=== PATIENT | female | born 1945 | race Caucasian/White ===

== ENCOUNTER → 2016-10-20 | Outpatient (CLI) | payer OTHER, MEDICARE ==
[~2016-10-20] MED LIST: ASPI81TA28 PO; CHOL20009 PO; ESCI10TA17 PO; HMLI SC; HMLI7525 SC; LISI-787 PO; LISI10TA PO; METF-841 PO; OFLO0.3S4 OPL; OXGN; PRED10TA PO; PRED1SUS3 OPL
[2016-10-20 15:56] LABS: ALT/SGPT 20 U/L (12-78); AST/SGOT 6 U/L (15-37); BLOOD UREA NITROGEN 16 mg/dl (7-18); BUN/CREATININE RATIO 16.7 (10-20); CALCIUM 8.4 mg/dl (8.5-10.1); CARBON DIOXIDE 26 mmol/L (21-32); CHLORIDE 103 mmol/L (98-107); CREATININE 0.97 mg/dl (0.60-1.20); GLUCOSE 220 mg/dl (70-99); POTASSIUM 3.5 mmol/L (3.5-5.1); SODIUM 139 mmol/L (136-145)
[2016-10-20 16:07] LABS: ALB/GLOB RATIO 0.9 (0.9-2); ALKALINE PHOSPHATASE 98 U/L (45-117); CHOLESTEROL 210 mg/dl (0-200); CHOLESTEROL/HDL RATIO 3.6; HDL CHOLESTEROL 58 mg/dl; LDL CHOLESTEROL CALCULATED 99 mg/dl; THYROID STIMULATING HORMONE 0.536 uIu/ml (0.300-4.500); TRIGLYCERIDES 266 mg/dl (0-150); VERY LOW DENSITY LIPOPROT CALC 53 mg/dl
[2016-10-21 06:12] LABS: ESTIMATED AVERAGE GLUCOSE 157 mg/dl; HA1C FLAG Normal (Normal)
== END | disposition home or self-care (01) ==
LOC: C.LAB1850 14:49
PROVIDERS: ATTEND Nurse Practitioner Adult Health
DX: E11.9 Type 2 diabetes mellitus without complications (principal); E78.5 Hyperlipidemia, unspecified; I10 Essential (primary) hypertension; Z79.52 Long term (current) use of systemic steroids

== ENCOUNTER → 2016-10-23 | Outpatient (CLI) | payer OTHER, MEDICARE ==
[2016-10-23 11:14] LABS: RATIO 3.5 mcg/mg (0-30.0)
== END | disposition home or self-care (01) ==
LOC: C.LABSPEC 09:33
PROVIDERS: ATTEND Family Medicine
DX: E11.9 Type 2 diabetes mellitus without complications (principal); E78.5 Hyperlipidemia, unspecified; I10 Essential (primary) hypertension

== ENCOUNTER → 2017-01-05 | Day surgery (SDC) | payer OTHER, MEDICARE ==
[2016-12-29 15:46] VITALS: BMI 37.0
[~2017-01-05] VITALS: Ht 160 cm; Wt 95.5 kg
[~2017-01-05] MED LIST changes: -HMLI SC; +LIDOCAINE HCL 2% 2 ML VIAL (20MG/ML) ONE; -LISI10TA PO; -OFLO0.3S4 OPL; -PRED1SUS3 OPL; +PROPOFOL IV EMULSION 10 MG/ML 20 ML VIAL IV ONE; +SODIUM CHLORIDE 0.9% 500ML 500 ML IV ONE
[2017-01-05 08:30] VITALS: Ht 160 cm; Wt 95.5 kg
--- NOTE | 2017-01-05 08:49 | Endo History and Physical ---
History & Physical Date of Service: Jan 05, 2017. Chief Complaint: HX OF POLYPS Referring Physician: DR RAHEL GUZMÁN History of Present Illness History of colon polyps, now on continuous oxygen. Past Surgical History Hx Cardiac Surgery: No Hx Internal Defibrillator: No Hx Pacemaker: No Hx Abdominal Surgery: Yes ([facility] BSO) Hx of Implantable Prosthesis: No Hx Post-Op Nausea and Vomiting: No Hx Cancer Surgery: No Hx Thoracic Surgery: No Hx Orthopedic: No Hx Urinary Tract Surgery: No Family History None Social History Smoking Status: Former Smoker Hx Substance Use: No Hx Alcohol Use: No Allergies Coded Allergies: Nitrofurantoin (Verified Allergy, Unknown, nausea, 12/29/16) Rosuvastatin (Verified Allergy, Unknown, "BREATHING PROBLEMS", 12/29/16) Sulfa Antibiotics (Verified Allergy, Unknown, RASH, 12/29/16) Atorvastatin (Verified Adverse Reaction, Unknown, muscle weakness, 12/29/16 ) Current Medications Reported Home Medications Medications Dose Route/Sig Max Daily Dose Days Date Category Zestoretic 20MG/12.5MG (HCTZ/Lisinopril) Tab 1 Tab PO QAM 12/29/16 Reported Humalog Mix 75/25 (Insulin Human Lispro) 100 Units/ Inj 48 Units SC QPM 12/29/16 Reported Prednisone 10 Mg Tab 1.5 Tabs PO QAM 01/23/16 Reported Oxygen Gas 3-4 Liters NA CONTINOUS 01/23/16 Reported Vitamin D (Cholecalciferol) 2,000 Unit Tab 1 Tab PO QAM 01/23/16 Reported Aspirin Ec (Aspirin) 81 Mg Tab 81 Mg PO QAM 01/23/16 Reported Metformin HCl ER (Metformin HCl) 1,000 Mg Tab 1 Tab PO QAM 01/23/16 Reported Lexapro (Escitalopram Oxalate) 10 Mg Tab 10 Mg PO QAM 01/23/16 Reported Vital Signs Weight (Kilograms): 95.45 Height (Feet): 5 Height (Inches): 3 Date Time Temp Pulse Resp B/P (MAP) Pulse Ox O2 Delivery O2 Flow Rate FiO2 01/05/17 08:32 36.6 90 20 112/61 (78) 95 Nasal Cannula 3 Physical Exam General Appearance: WD/WN, no apparent distress Respiratory/Chest: Auscultation: breath sounds normal, no wheezing Cardiovascular: Heart Auscultation: RRR, no murmurs Abdomen: Inspection & Palpation: soft, no tenderness, guarding & rebound Assessment and Plan Cleared for colonoscopy.
--- NOTE | 2017-01-05 10:07 | GI REPORT ---
Procedure Date: 01/05/2017 9:17 AM Procedure: Colonoscopy Indications: High risk colon cancer surveillance: Personal history of colonic polyps, Last colonoscopy: 2009 Medicines: Propofol per Anesthesia Complications: No immediate complications. Estimated blood loss: None. Estimated Blood Loss: Estimated blood loss: none. Procedure: Pre-Anesthesia Assessment: - Prior to the procedure, a History and Physical was performed, and patient medications, allergies and sensitivities were reviewed. The patient's tolerance of previous anesthesia was reviewed. - ASA Grade Assessment: III - A patient with severe systemic disease. After I obtained informed consent, the scope was passed under direct vision. Throughout the procedure, the patient's blood pressure, pulse, and oxygen saturations were monitored continuously. The On-site loaner was introduced through the anus and advanced to the terminal ileum, with identification of the appendiceal orifice and IC valve. The colonoscopy was performed with ease. The patient tolerated the procedure well. The quality of the bowel preparation was excellent. The bowel preparation used was split dose MIralax. Findings: The colon (entire examined portion) appeared normal. Impression: - The entire examined colon is normal to the terminal ileum with retroflexed views of the colon and terminal ileum. - No specimens collected. Recommendation: - Repeat colonoscopy in 5 years for surveillance. Pravin Major M.D. Pravin Major MD 01/05/2017 10:07:00 AM This report has been signed electronically. Note Initiated On: 01/05/2017 9:17 AM I attest to the content of the Intraoperative Record and orders documented therein, exceptions below
--- NOTE | 2017-01-05 10:21 | Discharge Instructions ---
Endoscopy Patient Instructions Date / Procedure(s) Performed Jan 05, 2017. Colonoscopy Allergy Information Coded Allergies: Nitrofurantoin (Verified Allergy, Unknown, nausea, 12/29/16) Rosuvastatin (Verified Allergy, Unknown, "BREATHING PROBLEMS", 12/29/16) Sulfa Antibiotics (Verified Allergy, Unknown, RASH, 12/29/16) Atorvastatin (Verified Adverse Reaction, Unknown, muscle weakness, 12/29/16 ) Discharge Date / Findings Jan 05, 2017. Normal colonoscopy. Medication Instructions Stopped Medication(s): ASPIRIN LAST DOSE 01/02/17 Restart Stopped Medication(s): Restart all medications Provider Instructions Activity Restrictions - No exercising or heavy lifting for 24 hours. - Do not drink alcohol the day of the procedure. - Do not drive a car or operate machinery until the day after the procedure. - Do not make any important decisions or sign important papers in 24 hours after the procedure. Following Day: - Return to full activity which may include returning to work/school. Diet Start your diet with liquids and light foods (jello, soup, juice, toast). Then eat your usual diet if not nauseated. Treatment For Common After Affects For mild abdominal pain, bloating, or excessive gas: - Rest - Eat lightly - Lie on right side Follow-Up Information Follow-up with DR RAHEL GUZMÁN as scheduled Anesthesia Information What You Should Know You have had a procedure that required some medicine to reduce anxiety and discomfort. This treatment is called moderate sedation. After receiving the treatment, you may be sleepy, but you will be able to breathe on your own. The effects of the treatment may last for several hours. Follow these instructions along with Activity/Diet recommendations noted above: * Do NOT do anything where dizziness or clumsiness would be dangerous. * Rest quietly at home today, then you can be up and about tomorrow. * Have a responsible person stay with you the rest of today. * You may have had an I.V. today. If so, you may take the dressing off later today. Recommendations Call your doctor if: * Trouble breathing * Continuous vomiting for more than 24 hours * Temperature above 101 degrees * Severe abdominal pain or bloating * Pain not relieved by pain medicine ordered * There is increased drainage or redness from any incision * A large amount of rectal bleeding greater than 2-3 tablespoons. (If you had a polyp/s removed or have hemorrhoids, a small amount of blood - from the rectum is to be expected.) * You have any unanswered questions or concerns. IN THE EVENT OF A SERIOUS EMERGENCY, GO TO THE NEAREST EMERGENCY ROOM Your discharge instructions were prepared by provider Pravin Major. Patient Instructions Signature Page Deysi King Patient (or Guardian) Signature/Date: I have read and understand the instructions given to me by my caregivers. Caregiver/RN/Doctor Signature/Date: The above-named patient and/or guardian has received patient instructions on this date. + Original Patient Signature Page (only) stays with chart. Please make copy for patient.
--- NOTE | 2017-01-05 10:38 | Anesthesiology Progress Note ---
Anesthesia Post Op Note Date & Time Jan 05, 2017 at 10:38 Vital Signs Pain Intensity: 0 Vital Signs Past 12 Hours Date Time Temp Pulse Resp B/P (MAP) Pulse Ox O2 Delivery O2 Flow Rate FiO2 01/05/17 10:34 84 20 125/54 (77) 98 Nasal Cannula 3 01/05/17 10:16 88 20 114/46 (68) 98 Nasal Cannula 3 01/05/17 10:01 85 20 99/46 (63) 100 Nasal Cannula 3 01/05/17 08:32 36.6 90 20 112/61 (78) 95 Nasal Cannula 3 Notes Mental Status: alert / awake / arousable, participated in evaluation Pt Amnestic to Procedure: Yes Nausea / Vomiting: adequately controlled Pain: adequately controlled Airway Patency, RR, SpO2: stable & adequate BP & HR: stable & adequate Hydration State: stable & adequate Anesthetic Complications: no major complications apparent
[2017-01-05 11:04] VITALS: BP 128/54; PULSE 86; O2SAT 98
== END | disposition home or self-care (01) ==
LOC: C.GI 08:06
PROVIDERS: ATTEND Internal Medicine Gastroenterology
DX: Z12.11 Encounter for screening for malignant neoplasm of colon (principal); Z86.010 Personal history of colon polyps; Z87.891 Personal history of nicotine dependence; Z90.710 Acquired absence of both cervix and uterus; Z90.722 Acquired absence of ovaries, bilateral; Z90.79 Acquired absence of other genital organ(s); Z79.82 Long term (current) use of aspirin; Z79.52 Long term (current) use of systemic steroids; Z99.81 Dependence on supplemental oxygen; Z79.4 Long term (current) use of insulin

== ENCOUNTER → 2017-01-23 | Outpatient (CLI) | payer OTHER, MEDICARE ==
[~2017-01-23] MED LIST changes: -LIDOCAINE HCL 2% 2 ML VIAL (20MG/ML) ONE; -PROPOFOL IV EMULSION 10 MG/ML 20 ML VIAL IV ONE; -SODIUM CHLORIDE 0.9% 500ML 500 ML IV ONE
[2017-01-23 13:24] LABS: ESTIMATED AVERAGE GLUCOSE 177 mg/dl; HA1C FLAG Normal (Normal)
== END | disposition home or self-care (01) ==
LOC: C.LAB1850 11:24
PROVIDERS: ATTEND Nurse Practitioner Adult Health
DX: E11.9 Type 2 diabetes mellitus without complications (principal)